=== PATIENT | female | born 1980 | race Caucasian/White ===

== ENCOUNTER 2024-06-29 06:34 | Emergency (ER) | payer MEDICAID ==
[~2024-06-29] VITALS: Ht 162.6 cm; Wt 104.3 kg
[2024-06-29 06:37] VITALS: BP 176/88; PULSE 87; RESP 18; TEMP 98.2; O2SAT 99
[2024-06-29] MEDS: KETOROLAC 60 MG/2 ML VIAL IM ONE (06:54)
[2024-06-29 07:30] VITALS: O2SAT 99
[2024-06-29] MEDS: MORPHINE SULFATE 4 MG/ML SYR IM ONE (08:35)
[2024-06-29] MEDS ORDERED: IBUP-2213 PO (09:05)
[2024-06-29] MEDS ORDERED: ACET-8905 PO (09:05)
[2024-06-29 09:32] VITALS: O2SAT 98
[2024-06-29 09:33] VITALS: BP 145/81; PULSE 65; RESP 19; TEMP 98.2; O2SAT 98
== END 2024-06-29 09:33 | disposition home or self-care (01) ==
LOC: MED 06:34
DX: S13.4XXA Sprain of ligaments of cervical spine, initial encounter (principal); R07.89 Other chest pain; M54.50 Low back pain, unspecified; M25.551 Pain in right hip; R03.0 Elevated blood-pressure reading, without diagnosis of hypertension; V89.2XXA Person injured in unspecified motor-vehicle accident, traffic, initial encounter; Y93.89 Activity, other specified; Y92.89 Other specified places as the place of occurrence of the external cause; Y99.8 Other external cause status
CPT/HCPCS: 71045; 72040; 72100; 73502; 96372; 99284; J1885; J2270